=== PATIENT | male | born 1990 | race Caucasian/White ===

== ENCOUNTER → 2016-10-17 | Day surgery (SDC) | payer BC ==
[~2016-10-17] VITALS: Ht 181.6 cm; Wt 79.4 kg
[2016-10-17] VITALS (11 sets, daily range): BP systolic 123–141; BP diastolic 56–78
[~2016-10-17] MED LIST: Atropine Inj 1mg/10ml Syr IV PRN; Bacitracin 50000 Units Vial ONE; Bupivacaine 0.5% Inj 30 ml vial INJ ONE; Bupivacaine w/Epi 0.25% 30ml Vial INJ ONE; Dexamethasone 4mg/ml vial ONE; DiphenhydrAMINE 50mg/ml Inj IVP PRN; EPINEPHrine 1mg/1ml Amp ONE; HYDROmorphone 1mg/ml Carpuject SUBQ PRN; Hydromorphone 0.5mg/0.5ml inj IVP PRN; Ketorolac 30mg Inj IV PRN; Ketorolac 60mg Inj IV PRN; LORazepam Inj 2mg/ml 1ml IV PRN; LR 1000ml 1,000 ML IVLG SCH; LR 1000ml ONE; Labetalol 5mg/ml 20ml vial IV PRN; Lidocaine 1% MPF 10mg/ml 5ml ONE; Lidocaine 1% Plain 30 ml INJ ONE; Meperidine 25mg/ml Inj IV PRN; Metoclopramide 10mg/2ml Inj IVP PRN; Midazolam 2mg/2ml Inj IVP PRN; Morphine Sulfate 2mg/ml Inj IVP PRN; Morphine Sulfate PF 0 ML ONE; NKM; NS Irrig 1000ml ONE; NS Irrig 4000ml IRRIG ONE; Norco 5mg/325mg tab ORAL PRN; Norco 7.5mg/325mg tab ORAL PRN; Oxycodone/Acetaminophen 5-325 ORAL PRN; Propofol 10mg/ml 100ml btl IV ONE; Ropivacaine 5mg/ml Vial 20ml INJ ONE; fentaNYL 100 mcg/2 mL IV ONE; fentaNYL 100 mcg/2 mL IV PRN
--- NOTE | 2016-10-17 07:19 | Pre-Procedure Note/Attestation ---
Pre-Procedure Note/Attestation Complete Prior to Procedure Planned Procedure: right Procedure Narrative: Knee ACL reconstruction with Autograft Indications for Procedure Pre-Operative Diagnosis: Right knee ACL tear Attestation I attest that I discussed the nature of the procedure; its benefits; risks and complications; and alternatives (and the risks and benefits of such alternatives ), prior to the procedure, with the patient (or the patient's legal traveling representative). I attest that, if there was a reasonable possibility of needing a blood transfusion, the patient (or the patient's legal traveling representative) was given the [facility] standardized written summary, pursuant to the Tevin [place] Blood Safety Act ([place] Health and Safety Code # 1645, as amended). I attest that I re-evaluated the patient just prior to the surgery and that there has been no change in the patient's H&P, except as documented below: ELISEO HAWKINS Oct 17, 2016 07:19
--- NOTE | 2016-10-17 07:21 | Brief Operative Note ---
Immediate Post Operative Note Operative Note Pre-op Diagnosis: Right knee ACL tear Procedure: Right knee ACL reconstruction with autograft quad tendon Post-op Diagnosis: same as pre-op Findings: consistent w/pre-op dx studies Surgeon: Cyrus Dance Master: Heidi Anesthesia: general, regional, local Specimen: none Complications: none Condition: stable Estimated Blood Loss: none Drains: none Implant(s) used?: Yes ELISEO HAWKINS Oct 17, 2016 07:21
--- NOTE | 2016-10-17 10:35 | Anethesia Preoperative Eval ---
Anesthesia Pre-op PMH/ROS General Date of Evaluation: Oct 17, 2016 Time of Evaluation: 07:16 Anesthesiologist: Heidi ASA Score: ASA 1 Mallampati Score Class I : Soft palate, uvula, fauces, pillars visible Class II: Soft palate, uvula, fauces visible Class III: Soft palate, base of uvula visible Class IV: Only hard plate visible Mallampati Classification: Class I Surgeon: Cyrus Diagnosis: R Knee Pain Surgical Procedure: R Knee Arthroscopy ACL Repair Anesthesia History: none Family History: no anesthesia problems Allergies: Coded Allergies: SULFA (SULFONAMIDE ANTIBIOTICS) (Verified Allergy, Unknown, 10/16/16) PT DOES NOT REMEMBER REACTION Uncoded Allergies: CATS (Allergy, Intermediate, 10/16/16) WATERY EYES DOGS (Allergy, Mild, 10/16/16) WATERY EYES Medications: see eMAR Anesthesia Pre-op Phys. Exam Physician Exam Last Vital Signs Date Time Temp Pulse Resp B/P Pulse Ox O2 Delivery O2 Flow Rate FiO2 10/17/16 06:40 97.7 71 20 132/78 100 Room Air Constitutional: NAD Neurologic: CN 2-12 intact Cardiovascular: RRR Respiratory: CTA Gastrointestinal: S/NT/ND Airway Exam Mallampati Score: Class I MO: full ROM: full Teeth: intact Anesthesia Pre-op A/P Risk Assessment & Plan Assessment: ASA 1 Plan: GA, BIS, R Adductor Block Status Change Before Surgery: No Pre-Antibiotics Dru Grams Ancef IV Given Within 1 Hr of Incision: Yes Time Given: 07:26 Ezra Gordon MD Oct 17, 2016 10:35
--- NOTE | 2016-10-17 10:44 | Immediate Post-Op Evaluation ---
Immediate Post-Op Evalulation Immediate Post-Op Evalulation Procedure: R ACL Repair Date of Evaluation: Oct 17, 2016 Time of Evaluation: 10:45 IV Fluids: 800 LR Blood Products: 0 Estimated Blood Loss: 75 Urinary Output: 0 Blood Pressure Systolic: 141 Blood Pressure Diastolic: 56 Pulse Rate: 108 Respiratory Rate: 16 O2 Sat by Pulse Oximetry: 99 Temperature (Fahrenheit): 99.5 Pain Score (1-10): 0 Nausea: No Vomiting: No Complications 0 Patient Status: awake, reacts, patent, extubated, none Hydration Status: adequate Dru Grams Ancef IV Given Within 1 Hr of Incision: Yes Time Given: 07:26 Ezra Gordon MD Oct 17, 2016 10:44
--- NOTE | 2016-10-17 10:45 | 48 Hour Post Anesthesia Eval ---
Post Anesthesia Evaluation Procedure: R ACL Repair Date of Evaluation: Oct 17, 2016 Time of Evaluation: 13:06 Blood Pressure Systolic: 126 0: 43 Pulse Rate: 91 Respiratory Rate: 18 Temperature (Fahrenheit): 98.6 O2 Sat by Pulse Oximetry: 99 Airway: patent Nausea: No Vomiting: No Pain Intensity: 1 Hydration Status: adequate Cardiopulmonary Status: Stable Mental Status/LOC: patient returned to baseline Follow-up Care/Observations: 0 Post-Anesthesia Complications: 0 Follow-up care needed: ready to discharge Ezra Gordon MD Oct 17, 2016 10:45
--- NOTE | 2016-10-18 09:18 | Operative Note - Dictated ---
DATE OF OPERATION: 10/17/2016 SURGEON: Rk Bridges M.D. ([facility] [place]). PREDATORY ANIMAL TRAPPER: None. ANESTHESIA: General plus regional plus local. COMPLICATIONS: None. ANTIBIOTICS: Ancef. PREOPERATIVE DIAGNOSIS: Right knee anterior cruciate ligament rupture. POSTOPERATIVE DIAGNOSIS: Right knee anterior cruciate ligament rupture. PROCEDURE PERFORMED: Right knee anterior cruciate ligament allograft reconstruction using quadriceps graft and 9 x 23 mm Aparna screw for the femur and a 11 x 30 mm Aparna screw for the tibia. BACKGROUND: The patient sustained an anterior cruciate ligament rupture. He had instability and ability to return back to normal activity. All risks, benefits, and alternatives to surgical intervention were discussed in great detail. Risks included, but were not limited to, bleeding, infection, neurovascular injury, need for additional surgical intervention, failure of pain relief, arthrofibrosis, complications of anesthesia, blood clots, stroke, heart attack, and potentially . He understood these risks, amongst others, and consent was signed. PROCEDURE IN DETAIL: The patient was brought into the operating room and placed supine on the operating table. The right knee was correctly verified for surgical site and prepped and draped in standard sterile fashion. Examination under anesthesia revealed 2+ pivot shift and 3+ Antonino's compared only trace and physiologic on the contralateral side. Attention was first turned the graft harvesting. Using a suprapatellar midline incision, the quadriceps tendon was readily identified. Good hemostasis was maintained using electrocautery. A 25 mm long bone plug was taken from the patella using a microsagittal saw and osteotomes. The graft was harvested and prepared on the back table. The defect in the patellar tendon was repaired using a 0 Vicryl stitch. DRILL HOLES WERE CREATED IN THE BONE PLUG AND FIBERWIRE WAS USED IN THE SOFT TISSUE END. IT WAS MEASURED APPROPRIATELY AND FOUND TO PASS THROUGH AN 11 MILLIMETER WIDE TUNNEL. THE GRAFT WAS PROTECTED ON THE BACK TABLE AND ATTENTION WAS TURNED TO PREPARING THE KNEE. ANTEROLATERAL AND ANTEROMEDIAL PORTALS WERE MARKED AND INJECTED WITH 20 ML 0.25% MARCAINE WITH EPINEPHRINE. A DIAGNOSTIC ARTHROSCOPY WAS THEN UNDERTAKEN. IT REVEALED THE FOLLOWIN. Normal suprapatellar pouch. 2. Normal patellofemoral articulation. 3. Normal medial gutter. 4. Normal lateral gutter. 5. Normal lateral meniscus. 6. Normal medial meniscus. 7. Normal medial compartment. 8. Normal lateral compartment. 9. Normal PCL. 10. Ruptured anterior cruciate ligament with empty notch sign. Radiofrequency device was used to clear the notch and the [id number] position was clearly identified. The footprint of the base of the tibia was also cleared. Using an anterior cruciate ligament guide, an 11 mm wide tunnel was created. Using an [id number] positioner to secure 1.5 mm posterior cortical border on the femur, pin was passed in order to drill of a millimeter wide tunnel. The sensory guide was then secured in the tunnel and a plotted pin was passed up the skin. The Nitinol wire was used and the slot from the portal and the graft was pulled into position under direct visualization. The bone block was seated into the tunnel and the Aparna screw was placed alongside the bone plug and an interference screw. With appropriate tension, an interference screw was then placed in the tibial tunnel alongside the graft. Throughout a full range of motion, there was no impingement of the graft on either condyle. In full extension, there was no impingement in the notch. Isometry was excellent throughout a full range of motion and positioning was anatomic. All fluid and debris were evacuated from the knee. A 10 mL of 0.25% Marcaine with epinephrine were injected. The wounds were copiously irrigated and reapproximated using 0 Vicryl and Monocryl in a subcuticular fashion. Steri-Strips were used over Mastisol. A dry sterile dressing was applied. A compressive stocking was fitted. He tolerated the procedure well. There were no complications. I attest that I performed the entire operation. He was then transferred to the recovery room in good condition. Rk Bridges M.D. DR: RAOUL JOB#: [id number] CC: MIMA
== END | disposition home or self-care (01) ==
LOC: SUR 05:55
DX: S83.511A Sprain of anterior cruciate ligament of right knee, initial encounter (principal); X58.XXXA Exposure to other specified factors, initial encounter; Y92.89 Other specified places as the place of occurrence of the external cause; Y99.9 Unspecified external cause status; Z88.2 Allergy status to sulfonamides
CPT/HCPCS: 29888; C1713; J0171; J0690; J1100; J2001; J2250; J2405; J2704; J2795; J3010; J7120; 94003; 94150